=== PATIENT | male | born 1940 | race Caucasian/White ===

== ENCOUNTER 2017-04-28 04:59 | Emergency (ER) | payer OTHER, MEDICARE ==
[~2017-04-28 04:59] MED LIST: COUMADIN 7.5 M7.5 MG PO; DOCUSATE SODIU100 MG PO; PERCOCET 325 MG1 TA2 PO; TENORMIN50 MG PO
--- NOTE | 2017-04-28 05:14 | ED AMS/SEIZURE/WEAK/DIZZY ---
History of Present Illness General Chief Complaint: General Adult Stated Complaint: "DIZZY,SHAKEY,DRY MOUTH" Source: patient Exam Limitations: no limitations Vital Signs & Intake/Output Vital Signs & Intake/Output Vital Signs Date Time Temp Pulse Resp B/P B/P Pulse O2 O2 Flow FiO2 Mean Ox Delivery Rate 04/28 0516 98.6 85 22 177/88 94 Allergies Coded Allergies: Penicillins (Intermediate, HIVES 04/28/17) Reconcile Medications Atenolol (Tenormin) 50 MG TABLET 1 TAB PO DAILY BLOOD PRESSURE (Reported) Docusate Sodium 100 MG SGL 100 MG PO DAILY NEEDED PRN IF NO BM FOR 24HR OXYCODONE HCL/ACETAMINOPHEN (Percocet 5-325 MG Tablet) 325 MG/5 MG TAB 1-2 TAB PO Q4P PRN PAIN Warfarin Sodium (Coumadin) 7.5 MG TABLET 1 TAB PO DAILY BLOOD THINNER DOSE FOR INR 2-3 Triage Nurses Notes Reviewed? yes Onset: Gradual Duration: hour(s): Timing: recent history Injury Environment: home Severity: mild, moderate Modifying Factors: Improves With: rest. Associated Symptoms: dry mouth, chills HPI: 76 yo gentleman h/o htn, in prior good health presents with dry mouth, abdominal distension, slight chills for the past 3-4 hours. "Maybe a little dizzy" He shares that yesterday evening, he at a [employer] from [employer]. At 2am this morning, he awoke with the symptoms noted above. He also notes, "My mouth is dry... I'm so thirsty.... I'm passing a lot of gas." No fever, chest pain, syncopal symptoms, myalgias, dyspnea. Past History Travel History Traveled to [place] past 21 day No Medical History Any Pertinent Medical History? 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 No Review of Systems Review of Systems Constitutional: Reports: no symptoms. EENTM: Reports: no symptoms. Respiratory: Reports: no symptoms. Cardiovascular: Reports: no symptoms. GI: Reports: no symptoms. Genitourinary: Reports: no symptoms. Musculoskeletal: Reports: no symptoms. Skin: Reports: no symptoms. Neurological/Psychological: Reports: no symptoms. Hematologic/Endocrine: Reports: no symptoms. Immunologic/Allergic: Reports: no symptoms. All Other Systems: Reviewed and Negative Physical Exam Physical Exam General Appearance: well developed/nourished, mild distress Head: atraumatic, normal appearance Eyes: Bilateral: normal appearance, PERRL, EOMI. Ears, Nose, Throat: normal pharynx, normal ENT inspection, hearing grossly normal Neck: normal inspection, supple, full range of motion, JVD Respiratory: normal breath sounds, chest non-tender, no respiratory distress, quiet respiration, lungs clear Cardiovascular: regular rate/rhythm Gastrointestinal: normal bowel sounds, soft, moderate distension Back: normal inspection, normal range of motion Extremities: normal range of motion Neurologic/Psych: no motor/sensory deficits, awake, alert, oriented x 3 Skin: intact, normal color, warm/dry Core Measures ACS in differential dx? No CVA/TIA Diagnosis No Sepsis Present: No Sepsis Focused Exam Completed? No Progress Differential Diagnosis: food poisoning, dehydration, viral syndrome vs other. Plan of Care: Orders Procedure Date/time Status TROPONIN LEVEL 04/28 513 Complete LIPASE 04/28 513 Complete HEPATIC FUNCTION PANEL 04/28 513 Complete CBC WITHOUT DIFFERENTIAL 04/28 513 Complete BASIC METABOLIC PANEL 04/28 513 Complete AMYLASE 04/28 05 Complete EKG 04/28 0513 Active Current Medications Sig/Darrell Start time Last Medication Dose Stop Time Status Admin Al Hydroxide/Mg 30 ML ONCE ONE 04/28 0645 AC Hydroxide 04/28 0646 (Maalox Plus) Laboratory Tests 04/28/17 0528: Anion Gap 12, Estimated GFR > 60, BUN/Creatinine Ratio 25.0, Glucose 146 H, Calcium 9.1, Total Bilirubin 0.5, Direct Bilirubin 0.2, AST 22, ALT 20 L, Alkaline Phosphatase 71, Troponin I < 0.01, Total Protein 6.5, Albumin 4.0, Amylase 39, Lipase 60, CBC w Diff NO MAN DIFF REQ, RBC 5.46, MCV 86.2, MCH 29.1, MCHC 33.7, RDW 13.0, MPV 8.0, Gran % 57.3, Lymphocytes % 25.3, Monocytes % 12.2 H, Eosinophils % 4.7, Basophils % 0.5, Absolute Granulocytes 4.6, Absolute Lymphocytes 2.0, Absolute Monocytes 1.0 H, Absolute Eosinophils 0.4, Absolute Basophils 0 Diagnostic Imaging: Viewed by Me: Radiology Read, CT Scan. Discussed w/RAD: Radiology Read, CT Scan. Radiology Impression: PATIENT: CUCO GRANADO PRESENT AGE: 76 PATIENT ACCOUNT NO: [id number] : 42 LOCATION: ER ORDERING PHYSICIAN: Kade Trejo MD SERVICE DATE: 04/28/17 EXAM TYPE: CAT - CT HEAD WO IV CONTRAST EXAMINATION: CT HEAD WITHOUT CONTRAST CLINICAL INFORMATION: Lightheaded. Dizzy. Mental status change. COMPARISON: MRI 03/07/2009 TECHNIQUE: Contiguous axial imaging was performed from the skull base to vertex without intravenous contrast. DLP: 624 mGy-cm. FINDINGS: There is no evidence of acute intracranial hemorrhage or territorial infarction. No abnormal mass effect or midline shift is seen. Archuleta to white matter differentiation is well preserved. No extra-axial fluid collections are identified. No hydrocephalus. Proportional prominence of the ventricles and sulcal spaces is consistent with mild volume loss. There is no abnormal attenuation within the brain parenchyma. The osseous structures and soft tissues are normal. Mastoid air cells are well aerated. Moderate opacification of the right sphenoid sinus. Mild opacification of the maxillary sinuses and ethmoid air cells. IMPRESSION: No acute intracranial pathology. Mild to moderate paranasal sinus opacification. DICTATED BY: Matthew Woodward MD DATE/TIME DICTATED:04/28/17618 SANITATION DIRECTOR: AUDIE DATE/TIME TRANSCRIBED:04/28/17618 CONFIDENTIAL, DO NOT COPY WITHOUT APPROPRIATE AUTHORIZATION. <Electronically signed in Other Vendor System> SIGNED BY: Matthew Woodward MD 04/28/17623, PATIENT: CUCO GRANADO PRESENT AGE: 76 PATIENT ACCOUNT NO: [id number] : 42 LOCATION: [facility] ORDERING PHYSICIAN: Kade Trejo MD SERVICE DATE: 04/28/17 EXAM TYPE: CAT - CT ABD & PELVIS W/O IV CONTRAS EXAMINATION: CT ABDOMEN AND PELVIS WITHOUT CONTRAST CLINICAL INFORMATION: Abdominal distention COMPARISON: None TECHNIQUE: Multidetector volumetric imaging was performed from the superior aspect of the liver through the pubic symphysis. Sagittal and coronal reformatted images were obtained on the technologist's workstation. DLP: 493 mGy-cm FINDINGS: LUNG BASES: The visualized lung bases are unremarkable. LIVER, GALLBLADDER, AND BILIARY TREE: The liver is normal in size, shape, and attenuation. No focal hepatic lesion or biliary ductal dilatation is present. The gallbladder is somewhat distended with no evidence of radiopaque gallstones, gallbladder wall thickening, or obvious pericholecystic inflammatory changes. PANCREAS: Unremarkable. SPLEEN: Unremarkable. ADRENAL GLANDS: Unremarkable. KIDNEYS AND URETERS: The kidneys are normal in size, shape, and attenuation. No hydronephrosis, hydroureter, or calculi seen. Mild symmetric perinephric stranding. BLADDER: Unremarkable. GASTROINTESTINAL TRACT: Small hiatal hernia. The stomach is otherwise unremarkable. Duodenal diverticulum noted at the third portion of the duodenum. The small bowel is normal in caliber with no obstruction. Fecalization of the distal ileum suggests slow transit. Normal appendix. No colonic wall thickening or inflammatory change. Colonic diverticulosis without diverticulitis. No free air or free fluid. ABDOMINAL WALL: Small fat-containing left internal hernia. LYMPH NODES: No pathologically enlarged lymph nodes. Appearance of a "hesham mesentery ". VASCULAR: Normal caliber aorta with mild atherosclerotic calcifications. PELVIC VISCERA: The prostate and seminal vesicles are unremarkable. OSSEOUS STRUCTURES: No acute or suspicious osseous abnormality. Multilevel degenerative changes in the spine. IMPRESSION: No acute findings in the abdomen or pelvis. No abnormal bowel dilatation. No inflammatory changes. DICTATED BY: Matthew Woodward MD DATE/TIME DICTATED:04/28/17619 SANITATION DIRECTOR:AUDIE DATE/TIME TRANSCRIBED:04/28/17619 CONFIDENTIAL, DO NOT COPY WITHOUT APPROPRIATE AUTHORIZATION. <Electronically signed in Other Vendor System> SIGNED BY: Matthew Woodward MD 04/28/17625 CXR Impression: PATIENT: CUCO GRANADO PRESENT AGE: 76 PATIENT ACCOUNT NO: [id number] : 42 LOCATION: [facility] ORDERING PHYSICIAN: Kade Trejo MD SERVICE DATE: 04/28/1744 EXAM TYPE: RAD - XRY- PORTABLE CHEST XRAY EXAMINATION: XR PORTABLE CHEST CLINICAL INFORMATION: Presyncope COMPARISON: 05/22/2010 TECHNIQUE: Portable frontal view of the chest was obtained. FINDINGS: Mild elevation of the right hemidiaphragm. The lungs are well expanded. There is no focal consolidation, edema, or effusion. No pneumothorax. The cardiomediastinal silhouette is within normal limits. No acute osseous abnormality. IMPRESSION: No acute pulmonary findings. DICTATED BY: Matthew Woodward MD DATE/TIME DICTATED:04/28/17621 SANITATION DIRECTOR: AUDIE DATE/TIME TRANSCRIBED:04/28/17621 CONFIDENTIAL, DO NOT COPY WITHOUT APPROPRIATE AUTHORIZATION. <Electronically signed in Other Vendor System> SIGNED BY: Matthew Woodward MD 04/28/17626 Initial ED EKG: NSR, no acute changes. Departure Departure Disposition: HOME OR SELF CARE Condition: Stable Clinical Impression Primary Impression: Dizziness Secondary Impressions: Abdominal distension, Food poisoning Referrals: Guerrero MAR,Chrissy Herrera (PCP/Family) Departure Forms: Customer Survey General Discharge Information Comments 04/28/17, 6:43am... pt feels well after 1 liter bolus.... extensive workup benign... head ct/abd-pelvic ct/ekg/cxr... trop neg (and patient never had cardiac/pulmonary symptoms). Discussed at length... pt safe for discharge with close follow up advised.
[2017-04-28 05:40] LABS: ABSOLUTE BASOPHIL COUNT 0 /CUMM (0.0-0.2); ABSOLUTE EOSINOPHIL COUNT 0.4 /CUMM (0.0-0.7); ABSOLUTE GRANULOCYTE CT 4.6 /CUMM (1.4-6.5); BASOPHIL % 0.5 % (0.0-2.0); EOSINOPHIL % 4.7 % (0-5); GRANULOCYTE % 57.3 % (42.2-75.2); HEMATOCRIT 47.1 % (42-52); MEAN CORPUSCULAR HGB 29.1 PG (27.0-31.0); MEAN CORPUSCULAR HGB CONC 33.7 G/DL (33.0-37.0); MEAN CORPUSCULAR VOLUME 86.2 FL (80.0-94.0); PLATELET COUNT 175 /CUMM (130-400); RED BLOOD CELL CT 5.46 /CUMM (4.70-6.10); WHITE BLOOD CELL COUNT 7.9 /CUMM (4.8-10.8)
--- NOTE | 2017-04-28 06:24 | CT SCAN REPORT ---
EXAMINATION: CT HEAD WITHOUT CONTRAST CLINICAL INFORMATION: Lightheaded. Dizzy. Mental status change. COMPARISON: MRI 03/07/2009 TECHNIQUE: Contiguous axial imaging was performed from the skull base to vertex without intravenous contrast. DLP: 624 mGy-cm. FINDINGS: There is no evidence of acute intracranial hemorrhage or territorial infarction. No abnormal mass effect or midline shift is seen. Archuleta to white matter differentiation is well preserved. No extra-axial fluid collections are identified. No hydrocephalus. Proportional prominence of the ventricles and sulcal spaces is consistent with mild volume loss. There is no abnormal attenuation within the brain parenchyma. The osseous structures and soft tissues are normal. Mastoid air cells are well aerated. Moderate opacification of the right sphenoid sinus. Mild opacification of the maxillary sinuses and ethmoid air cells. IMPRESSION: No acute intracranial pathology. Mild to moderate paranasal sinus opacification.
--- NOTE | 2017-04-28 06:26 | CT SCAN REPORT ---
EXAMINATION: CT ABDOMEN AND PELVIS WITHOUT CONTRAST CLINICAL INFORMATION: Abdominal distention COMPARISON: None TECHNIQUE: Multidetector volumetric imaging was performed from the superior aspect of the liver through the pubic symphysis. Sagittal and coronal reformatted images were obtained on the technologist's workstation. DLP: 493 mGy-cm FINDINGS: LUNG BASES: The visualized lung bases are unremarkable. LIVER, GALLBLADDER, AND BILIARY TREE: The liver is normal in size, shape, and attenuation. No focal hepatic lesion or biliary ductal dilatation is present. The gallbladder is somewhat distended with no evidence of radiopaque gallstones, gallbladder wall thickening, or obvious pericholecystic inflammatory changes. PANCREAS: Unremarkable. SPLEEN: Unremarkable. ADRENAL GLANDS: Unremarkable. KIDNEYS AND URETERS: The kidneys are normal in size, shape, and attenuation. No hydronephrosis, hydroureter, or calculi seen. Mild symmetric perinephric stranding. BLADDER: Unremarkable. GASTROINTESTINAL TRACT: Small hiatal hernia. The stomach is otherwise unremarkable. Duodenal diverticulum noted at the third portion of the duodenum. The small bowel is normal in caliber with no obstruction. Fecalization of the distal ileum suggests slow transit. Normal appendix. No colonic wall thickening or inflammatory change. Colonic diverticulosis without diverticulitis. No free air or free fluid. ABDOMINAL WALL: Small fat-containing left internal hernia. LYMPH NODES: No pathologically enlarged lymph nodes. Appearance of a "hesham mesentery ". VASCULAR: Normal caliber aorta with mild atherosclerotic calcifications. PELVIC VISCERA: The prostate and seminal vesicles are unremarkable. OSSEOUS STRUCTURES: No acute or suspicious osseous abnormality. Multilevel degenerative changes in the spine. IMPRESSION: No acute findings in the abdomen or pelvis. No abnormal bowel dilatation. No inflammatory changes.
--- NOTE | 2017-04-28 06:27 | RADIOLOGY REPORT ---
EXAMINATION: XR PORTABLE CHEST CLINICAL INFORMATION: Presyncope COMPARISON: 05/22/2010 TECHNIQUE: Portable frontal view of the chest was obtained. FINDINGS: Mild elevation of the right hemidiaphragm. The lungs are well expanded. There is no focal consolidation, edema, or effusion. No pneumothorax. The cardiomediastinal silhouette is within normal limits. No acute osseous abnormality. IMPRESSION: No acute pulmonary findings.
[2017-04-28 06:53] VITALS: BP 150/80
== END 2017-04-28 06:58 ==
LOC: ERH 04:59
PROVIDERS: Pediatrics
DX: T62.91XA Toxic effect of unspecified noxious substance eaten as food, accidental (unintentional), initial encounter (principal); R42 Dizziness and giddiness; R14.0 Abdominal distension (gaseous)
CPT/HCPCS: 71045; 74176; 93005; 93010; 96360